=== PATIENT | male | born 1955 | race Caucasian/White ===

== ENCOUNTER 2018-11-05 13:11 | Outpatient (CLI) | payer OTHER ==
--- NOTE | 2018-11-05 19:03 | RAD ---
RIGHT ELBOW FOUR VIEWS: 11/05/18 No fracture or joint effusion was seen. All bones currently appear normal. IMPRESSION: No acute finding. POS: HOME
--- NOTE | 2018-11-05 19:05 | RAD ---
RIGHT WRIST THREE VIEWS 11/05/18 No acute fracture was seen. All of the carpal bones appear intact. There does appear to be some old healed injuries to the base of the fourth and fifth metacarpals. IMPRESSION: No acute finding. POS: HOME
== END 2018-11-05 13:12 | disposition home or self-care (01) ==
LOC: BURRAD 13:11
PROVIDERS: ATTEND Family Medicine
DX: S50.11XA Contusion of right forearm, initial encounter (principal)

== ENCOUNTER 2019-06-28 16:21 | Emergency (ER) | payer BC, MEDICARE, SELFPAY ==
[2019-06-28 17:08] LABS: %Neutrophils 73.8 % (42.0-75.0); Hemoglobin 15.2 g/dL (14.0-18.0); Manual Diff?? NO; Mean Corpuscular HGB CONC 32.9 g/dL (32.0-36.0); Mean Corpuscular Hemoglobin 33.2 pg (27.0-31.0); Mean Platelet Volume 8.9 fL (7.4-10.4); Platelet Count 247 thou/uL (130-400); RBC Distribution Width 11.6 % (11.5-14.5); Red Blood Cell (RBC) Count 4.59 mill/uL (4.70-6.10); White Blood Cell (WBC) Count 7.7 thou/uL (4.8-10.8)
[2019-06-28 17:09] LABS: #Basophils 0.1 thou/uL (0.0-0.2); #Eosinphils 0.1 thou/uL (0.0-0.7); #Monocytes 0.6 thou/uL (0.11-0.59); #Neutrophils 5.7 thou/uL (1.40-6.50); %Basophils 1.1 % (0.0-1.0); %Eosinophils 1.5 % (0.0-10.0); %Monocytes 7.6 % (0.0-10.0); MDiff Complete? YES
[2019-06-28 17:13] LABS: ALT (SGPT) 19 U/L (8-55); AST (SGOT) 32 U/L (5-34); Albumin 4.4 g/dL (3.4-4.8); Alkaline Phosphatase 50 U/L (40-110); Anion Gap 19 mmol/L (10-20); BUN (Urea Nitrogen) 6 mg/dL (8.4-25.7); Bilirubin, Total 0.6 mg/dL (0.2-1.2); Calc. Creatinine Clearance 0 mL/min (70-130); Carbon Dioxide 24 mmol/L (23-31); Chloride 99 mmol/L (98-107); Estimated GFR-MDRD Greater than 90; Globulin 2.6 g/dL (2.4-3.5); Glucose 96 mg/dL (80-115); Potassium 3.1 mmol/L (3.5-5.1); Sodium 139 mmol/L (136-145)
[2019-06-28 17:23] LABS: Bilirubin Negative (Negative); Blood, Urine Small (Negative); Clarity Clear (Clear); Glucose, Urine (Dipstick) Negative (Negative); Leukocyte Negative (Negative); Nitrite Negative (Negative); Protein, Urine (Dipstick) Negative (Neg-Trace); Urobilinogen 0.2 mg/dL (Less than 2)
[2019-06-28 17:26] LABS: Bacteria/HPF None Seen HPF (None Seen); RBC/HPF 0-3 HPF (0-3); Squamous Epithelial 0-3 HPF (0-3); WBC/HPF None Seen HPF (0-3)
[2019-06-28] MEDS ORDERED: Lidocaine 1% w/Epinephrine 1:100K 30 ML VIAL ONE (17:29)
[2019-06-28] MEDS ORDERED: Adacel (T-DAP) 0.5 ML SYRINGE ONE (18:08)
--- NOTE | 2019-06-28 18:11 | CT ---
CT BRAIN WITHOUT CONTRAST: Comparison: None. History: Head injury. Technique: Multiple contiguous axial images were obtained in a CT of the brain without contrast. FINDINGS: The brain is normal in morphology and attenuation without focal lesions or confluent areas of infarct ion. There is no evidence of hydrocephalus, intracranial hemorrhage, or extraaxial fluid collections. The calvarium and overlying soft tissues are unremarkable. The visualized paranasal sinuses and masto id air cells are well aerated. IMPRESSION: No evidence of acute intracranial abnormality. POS: [facility]
--- NOTE | 2019-06-28 18:14 | CT ---
CT OF THE CERVICAL SPINE WITHOUT CONTRAST: Comparison: 12-09-13 History: Head trauma with neck pain. Technique: Multiple contiguous axial images were obtained in a CT of the cervical spine without cont rast. Sagittal and coronal reformats were performed. FINDINGS: The patient is status fusion of C4 through C7. The vertebral bodies demonstrate normal height. There is lucency seen just beneath the fusion at C7-T1: This lucency appears chronic along the anterior ost eophytes but the lucency is seen extending posteriorly in the region of the posterior facets and an a cute fracture in this location that is nondisplaced cannot be entirely excluded. No lucency is seen i n this location on the prior CT of the cervical spine which was before surgery. No prevertebral soft tissue swelling is seen. Degenerative changes are seen in the spine. There is moderate narrowing of the central canal througho ut the cervical spine and moderate bilateral neural foraminal stenosis of the neural foramina through out the cervical spine. IMPRESSION: There is an area of lucency seen at the C7-T1 level which could represent a nondisplaced fracture jus t beneath the patient's hardware. POS: [facility]
--- NOTE | 2019-06-28 18:18 | RAD ---
SINGLE VIEW OF THE CHEST: Comparison: None History: Altered mental status and chest injury. FINDINGS: Single view of the chest shows a normal sized cardiomediastinal silhouette. There is no evidence of c onsolidation, mass, or pleural effusion. The bones are unremarkable. IMPRESSION: No evidence of acute cardiopulmonary disease. POS: [facility]
[2019-06-29 03:54] LABS: #Lymphocytes 1.2 thou/uL (1.20-3.40)
== END 2019-06-28 18:45 | disposition short-term general hospital (02) ==
LOC: BURERS 16:21
DX: S12.600A Unspecified displaced fracture of seventh cervical vertebra, initial encounter for closed fracture (principal); F10.129 Alcohol abuse with intoxication, unspecified; I10 Essential (primary) hypertension; F17.210 Nicotine dependence, cigarettes, uncomplicated; W19.XXXA Unspecified fall, initial encounter
CPT/HCPCS: 36415; 70450; 71045; 72125; 80053; 80307; 81003; 81015; 83880; 84484; 85025; 90471; 90715; 93005; J2001

== ENCOUNTER 2019-07-14 09:57 | Outpatient (CLI) | payer MEDICARE ==
--- NOTE | 2019-07-14 19:40 | ULT ---
RIGHT UPPER QUADRANT ULTRASOUND: 07/14/19 Ultrasonography of the right upper quadrant was done in this patient with somewhat elevated liver enz yme values. The liver is borderline in size, measuring about 16 cm in length. No disturbance to the parenchyma, m ass, dilated duct, or other acute changes were noted. The visible portions of the pancreas appear nor mal, though sections were not seen, particularly around the tail. The gallbladder appears normal with no signs of stones or wall thickening. The common bile duct is a normal 4 mm wide. The right kidney appears normal and is 11.5 cm long. IMPRESSION: Aside from borderline hepatic size, the exam showed no acute changes. POS: HOME
== END 2019-07-14 09:58 | disposition home or self-care (01) ==
LOC: BURULT 09:57
PROVIDERS: ATTEND Family Medicine
DX: R74.0 Nonspecific elevation of levels of transaminase and lactic acid dehydrogenase [LDH] (principal)
CPT/HCPCS: 76705

== ENCOUNTER 2021-09-26 11:21 | Outpatient (CLI) | payer MEDICARE | END 2021-09-26 11:22 | disposition home or self-care (01) | LOC: BURRAD 11:21 | PROVIDERS: ATTEND Family Medicine | DX: M25.571 Pain in right ankle and joints of right foot (principal); M25.471 Effusion, right ankle ==

== ENCOUNTER 2022-04-26 17:43 | Outpatient (CLI) | payer MEDICARE | END 2022-04-26 17:44 | disposition home or self-care (01) | LOC: BURRAD 17:43 | PROVIDERS: ATTEND Family Medicine | DX: S22.31XA Fracture of one rib, right side, initial encounter for closed fracture (principal); Y92.009 Unspecified place in unspecified non-institutional (private) residence as the place of occurrence of the external cause ==

== ENCOUNTER 2022-05-08 17:25 | Outpatient (CLI) | payer MEDICARE | END 2022-05-08 17:26 | disposition home or self-care (01) | LOC: BURRAD 17:25 | PROVIDERS: ATTEND Family Medicine | DX: S49.91XA Unspecified injury of right shoulder and upper arm, initial encounter (principal) ==

== ENCOUNTER 2022-05-18 13:09 | Outpatient (CLI) | payer MEDICARE | END 2022-05-18 13:10 | disposition home or self-care (01) | LOC: BURCT 13:09 | PROVIDERS: ATTEND Family Medicine | DX: S49.91XA Unspecified injury of right shoulder and upper arm, initial encounter (principal); S42.011A Anterior displaced fracture of sternal end of right clavicle, initial encounter for closed fracture; S22.41XA Multiple fractures of ribs, right side, initial encounter for closed fracture | CPT/HCPCS: 71250 ==